=== PATIENT | female | born 1980 | race African-American/Black ===

== ENCOUNTER 2019-01-24 13:34 | Emergency (ER) | payer SELFPAY ==
[~2019-01-24] VITALS: Ht 170.2 cm; Wt 102.1 kg
[2019-01-24 13:39] VITALS: Ht 170.2 cm; Wt 102.1 kg
[2019-01-24 14:42] LABS: BASOPHIL % 1.1 % (0-2); PLATELET COUNT 234 x10^3mcL (130-400); RED CELL DISTRIBUTION WIDTH 13.9 % (11.5-14.5)
[2019-01-24 15:20] LABS: microscopic required? YES; urine erythrocyte 3+ (NEGATIVE)
[2019-01-24 15:21] LABS: CALCIUM 8.5 mg/dL (8.5-10.1); CARBON DIOXIDE 25.2 mmol/L (21-32); CHLORIDE SERUM 109 mmol/L (98-107); CREATININE SERUM 0.9 mg/dL (0.6-1.0); GFR1 > 60 mL/min; GLUCOSE SERUM 82 mg/dL (74-106); SODIUM SERUM 145 mmol/L (136-145)
[2019-01-24 15:22] LABS: ALKALINE PHOSPHATASE 48 U/L (46-116); ALT/SGPT 18 U/L (14-59); AST/SGOT 11 U/L (15-37); BILIRUBIN TOTAL 0.1 mg/dL (0.20-1.00); CHOLESTEROL 142 mg/dL (<200); CHOLESTEROL/HDL RATIO 3.6; HDL CHOLESTEROL 39 mg/dL (40-60); LIPASE 54 IU/L (73-393); TOTAL PROTEIN, SERUM 6.7 g/dL (6.4-8.2); TRIGLYCERIDES 102 mg/dL (<150)
[2019-01-24 15:23] LABS: ALBUMIN 3.3 g/dL (3.4-5.0)
[2019-01-24 15:28] LABS: AMPHETAMINE QUAL UR NONE DETECTED (See below)
[2019-01-24 15:33] LABS: FREE T4 0.82 ng/dL (0.76-1.46); FREE THYROXINE INDEX 2.2 ug/dL (1.4-4.5); T4(THYROXINE) 6.4 ug/dL (4.7-13.3)
[2019-01-24 15:40] LABS: T3 TOTAL 1.1 ng/mL
[2019-01-24 16:01] VITALS: BP 99/48
== END 2019-01-24 16:01 | disposition home or self-care (01) ==
LOC: ED 13:34
PROVIDERS: Specialist
DX: R55 Syncope and collapse (principal); Z98.890 Other specified postprocedural states
CPT/HCPCS: 83880; 84439; G0480; J7030; Q0092